=== PATIENT | male | born 1955 | race Caucasian/White ===

== ENCOUNTER 2024-03-31 10:30 | Outpatient (CLI) | payer MEDICARE, BC, SELFPAY ==
--- OUTSIDE RECORDS SUMMARY | 2024-04-02 07:32 | XMS_ITS | Clinical Summary ---
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 2 Each 2 10/26/2013 Active aspirin enteric coated 81 mg tablet Take 1 tablet by mouth once daily with a meal. 0 03/25/2014 Active blood sugar diagnostic (CONTOUR NEXT STRIPS) stripIndications:Typ e 2 diabetes mellitus without complication, unspecified custodial insulin use status TEST FOUR TO 6 TIMES PER DAY 550 Each 3 01/30/2017 Active PARoxetine (PAXIL) 30 mg tabletIndications:Ma crystal depressive disorder, single episode, moderate (HC) Take 1 tablet by mouth once daily. 90 tablet 3 03/16/2018 Active omeprazole (PRILOSEC) 20 mg Delayed-Release capsuleIndications:G astroesophageal reflux disease without esophagitis TAKE ONE CAPSULE BY MOUTH DAILY 90 capsule 3 03/16/2018 Active NOVOLOG U-100 INSULIN ASPART 100 unit/mL injectionIndications :Type 2 diabetes mellitus without complication, with long-term current use of insulin (HC) USES 90 UNITS DAILY VIA INSULIN PUMP 90 mL 12/08/2018 Active acetaminophen (TYLENOL) 325 mg tabletIndications:S/ P CABG x 4 Take 1-2 tablets by mouth every 6 hours if needed. Max acetaminophen dose: 4000mg in 24 hrs. 0 08/23/2020 Active atorvastatin (LIPITOR) 40 mg tabletIndications:S/ P CABG x 4,Hyperlipidemia, unspecified hyperlipidemia type Take 1 tablet by mouth at bedtime. 30 tablet 2 08/23/2020 Active clopidogreL (PLAVIX) 75 mg tabletIndications:S/ P CABG x 4 Take 1 tablet by mouth every morning. Take for 3 months following surgery 30 tablet 2 08/24/2020 Active metoprolol tartrate (LOPRESSOR) 25 mg tabletIndications:S/ P CABG x 4,Essential hypertension Take 1 tablet by mouth 2 times daily. 60 tablet 2 08/23/2020 Active lisinopriL (PRINIVIL; ZESTRIL) 10 mg tabletIndications:S/ P CABG x 4,Essential hypertension Take 1 tablet by mouth once daily. 30 tablet 11 09/27/2020 Active Active Problems Problem Noted Date Diagnosed Date Essential hypertension 09/01/2018 Type 2 diabetes mellitus wit hout complication, with long-term current use of insulin 02/04/2017 GERD (gastroesophageal reflux disease) 3 Retinopathy, diabetic, bilateral 09/27/2013 Major depression, single episode 09/27/2013 Hyperlipidemia 09/21/2013 Cardiovascular symptoms Coronary artery disease Resolved Problems Problem Noted Date Diagnosed Date Resolved Date Type 2 diabetes mellitus without complication 03/13/20 16 02/04/2017 Diabetes mellitus 04/30/2015 04/30/2015 Diabetes mellitus 04/30/2015 04/30/2015 Hypertension 10/05/2014 09/01/2018 Type 2 diabetes mellitus 11/04/2001 Immunizations Name Administration Dates Next Due Influenza, IIV3 (Age >=3 years) 08/04/2013 Influenza, IIV4 08/23/2020(), 020,09/01/2018, 7,07/18/2016,08/25/2015,08/04/2014 Zoster (Zostavax-ZVL, live) 10/31/2013 Family History Medical History Relation Name Comments Cancer Father skin cancer Other Father pacemaker Arthritis Mother Hyperlipidemia Mother Valvular heart disease Mother histo ry of valve replacement Diabetes Paternal Aunt 1 Diabetes Paternal Aunt 2 Relation Name Status Comments Father Mother Paternal Aunt 1 Paternal Aunt 2 Social History Tobacco Use Types Packs/Day Years Used Date Smoking Tobacco: Former Cigarettes 1 25 0 11/04/1974 - 11/04/1999 Smokeless Tobacco: Never Tobacco Cessation:Counseling Given: Yes Alcohol Use Standard Drinks/Week Comments Yes 0 (1 standard drink = 0.6 oz pur e alcohol) holidays PHQ-2 Answer Date Recorded PHQ-2 TOTAL SCORE 0 01/16/2021 Social Connections Answer Date Recorded Frequency of Communication with Friends and Fami ly Not on file 11/04/2021 Financial Resource Strain Answer Date R ecorded Difficulty of Paying Living Expenses Not on file 11/04/2021 Difficulty of Paying Living Expenses Not on file 11/04/2021 Sex and Gender Information Value Date Recorded Sex Assigned at Not on file Gender Identity Not on file Sexual Orientation Not on file Obstetrics History Last Filed Vital Signs Vital Sign Reading Time Taken Comments Blood Pressure 173/82 09/27/2020 1:26 PM 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 Pulse 57 09/27/2020 1:26 PM CROWN 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 Temperature 36.6 ??C (97.9 ??F) 09/27/2020 1:26 PM CS T Respiratory Rate 16 08/23/2020 8:05 AM CDT Oxygen Saturation 98% 09/27/2020 1:26 PM CROWN 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 Inhaled Oxygen Concentration - - Weight 80.3 kg (177 lb) 10/19/2020 2:00 PM CROWN 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 Height 162.6 cm (5' 4) 10/19/2020 2:00 PM CROWN 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 Body Mass Index 30.38 10/19/2020 2:00 PM CROWN 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 Plan of Treatment Health Maintenance Due Date Last Done Comments Hepatitis C screening for ag e 18-79 1973 Tetanus booster 1975 Zoster (shingles) series for age 50+ (2 of 3) 12/26/2013 10/31/2013 Pneumococcal series for age 65+ (1 of 1 - PCV) 2020 BMI (ht and wt on same day) for age 18+ 08/11/2021 08/11/2020, 09/01/2018, 03/10/2018, Additional history exists Depression screening for age 12+ 01/16/2022 01/16/2021, 10/21/2020, 10/19/2020, Additional history exists Colonoscopy through age 75 01/01/202301/01 (Completed outside of [facility]) Lipids for age 45-75 03/10/2023 03/10/2018, 02/04/2017, 08/25/2015, Additional history exists COVID-19 vaccine series (2022- season) 2023 Influenza for age 65+ 07/05/2024 08/23/2020 , 09/01/2018, 09/24/2017, Additional history exists Tdap Completed 11/04/2007 (Comp leted outside of [facility]) Procedures Procedure Name Priority Date/Time Associated Diagnosis Comments LIPID PANEL W REFLEX MEASURED LDL Routine 03/10/2018 9:59 AM CDT Hyperlipidemia, unspecified hyperlipidemia type from Last 3 Months or Most Recently Relevant to Health Maintenance Results * LIPID PANEL W REFLEX MEASURED LDL (03/10/2018 9:59 AM CDT) CHOLESTEROL,TOTAL 180 100 - 199 mg/dL 03/10/2018 10:45 AM CDT [facility] TRIGLYCERIDES 91 <150 mg/dL 03/10/2018 10:45 AM CDT [facility] HDL CHOLESTEROL 42 >40 mg/dL 8 10:45 AM CDT [facility] NON-HDL CHOLESTEROL 138 <145 mg/dl 03/10/2018 10:45 AM CDT [facility] CHOL/HDL RATIO 4.29 <4.50 03/10/2018 10:45 AM CDT [facility] LDL CHOLESTEROL 120 <=130 mg/dL 03/10/2018 10:45 AM CDT [facility] PROVIDER ORDERED STATUS RANDOM 03/10/2018 10:45 AM CDT [facility] Blood BLOOD SPECIMEN / Unknown Venipuncture / Unknown 03/10/2018 9:59 AM CDT 03/10/2018 9:59 AM CDT Tez Coyle MD CHEMISTRY [facility] [address] [place] [address] from Last 3 Months or Most Recently Relevant to Health Maintenance Advance Directives * Full Code (Latest Code Status on File) Date Activated Date Inactivated Comments 08/18/2020 9:01 AM 08/23/2020 3:41 PM Question Answer Comments Code Status Discussion: Discussed Care Teams Generator Operator Straight Bevel Gear Relationship Specialty Start Date End Date Tez Coyle MD PCP - General Family Practice 09/16/13
== END 2024-03-31 10:31 | disposition home or self-care (01) ==
LOC: NFLDREF 04-02 07:31
PROVIDERS: PCP Family Medicine; Referring Provider Family Medicine; Visit Provider Family Medicine
DX: E11.9 Type 2 diabetes mellitus without complications (principal); I10 Essential (primary) hypertension; E78.5 Hyperlipidemia, unspecified; F32.9 Major depressive disorder, single episode, unspecified; K21.9 Gastro-esophageal reflux disease without esophagitis; L21.9 Seborrheic dermatitis, unspecified; H91.90 Unspecified hearing loss, unspecified ear; E78.2 Mixed hyperlipidemia; Z79.4 Long term (current) use of insulin; Z86.010 Personal history of colon polyps
CPT/HCPCS: 80048; 80061; 83690; G0103

== ENCOUNTER 2024-09-20 13:27 | Emergency (ER) | payer MEDICARE, BC, SELFPAY ==
[2024-09-20 13:32] VITALS: BP 181/83; PULSE 60; RESP 18; TEMP 36.4; O2SAT 96; BMI 30.8
--- NOTE | 2024-09-20 14:00 | ED_ITS ---
HPI - General Adult General Date Seen: 09/20/24 Chief complaint: Abdominal Pain Stated complaint: stomach discomfort/pain Time Seen by Provider: 09/20/24 13:59 History of Present Illness HPI narrative: 68 yo M with a history of hyperlipidemia, type 2 diabetes, coronary artery disease (CABG in 2019), hypertension, GERD, depression, colon polyps presenting to the ER today for abdominal discomfort. For the past few days, perhaps since for 5 days ago he has had a generalized ache in his abdomen. It has been coming and going. No clear pattern to what exacerbates or alleviates the pain. Sometimes it is worth with activity or movement. Sometimes it is not. No clear relationship to eating or food. Sometimes mild nausea but no vomiting. Bowel movements have been normal. Urination normal. No fever. Patient recalls that had some problem with his GI tract several years ago but cannot recall what that was. I attempted to look in the medical record but there is no available records in [facility]. I also checked the link to the [facility] EMR however this is malfunction now I am not able to see old records today (hospital Administration notified to correct the problem). Therefore were not sure what his previous problem was. It does not sound like it was diverticulitis or bowel obstruction. He has not had appendectomy. Subsequently his arrived and she was able to recall that he had been hospitalized several years ago for duodenitis. She does not recall that he had any upper GI bleeding or perforation with that. Related Data Home Medications ?Medication ?Instructions ?Recorded ?Confirmed aspirin 81 mg tablet,delayed 81 mg PO QDAY 05/14/22 07/07/24 release (Adult Aspirin Regimen) Previous Rx's ?Medication ?Instructions ?Recorded blood sugar diagnostic (Contour #400 ea 08/29/22 Next Test Strips) flash glucose scanning reader #1 ea 05/20/23 (FreeStyle Ana 2 [place]) flash glucose sensor (FreeStyle #6 ea 05/20/23 Ana 2 Sensor kit) atorvastatin 40 mg tablet 40 mg PO QDAY #90 tabs 03/31/24 fluocinonide 0.05 % topical 1 applic topical BID #60 mL 03/31/24 solution lisinopril 20 mg tablet 20 mg PO BID #180 tabs 03/31/24 metoprolol tartrate 25 mg tablet 25 mg PO BID #180 tabs 03/31/24 paroxetine HCl 30 mg tablet 30 mg PO QDAY #90 tabs 03/31/24 omeprazole 20 mg capsule,delayed 20 mg PO QDAY #90 caps 04/01/24 release insulin aspart (niacinamide) 100 unit subcut DAILY #90 mL 08/31/24 (U-100) 100 unit/mL subcutaneous solution (Fiasp U-100 Insulin) Allergies Allergy/AdvReac Type Severity Reaction Status Date / Time bee venom protein (honey bee) Allergy Severe Anaphylaxis Verified 09/20/24 15:44 [facility] Medical History (Updated 09/20/24 @ 17:03 by John Lockwood MD) Mixed hyperlipidemia ?E78.2 - Mixed hyperlipidemia (ICD-10) Type 2 diabetes mellitus, with long-term current use of insulin ?E11.9 - Type 2 diabetes mellitus without complications (ICD-10) ?Z79.4 - half-way (current) use of insulin (ICD-10) Allergic rhinitis ?J30.9 - Allergic rhinitis, unspecified (ICD-10) Tinea cruris ?B35.6 - Tinea cruris (ICD-10) Major depressive disorder with single episode (09/27/13) ?F32.9 - Major depressive disorder, single episode, unspecified (ICD-10) History of fracture of ankle (07/02/06) ?Z87.81 - Personal history of (healed) traumatic fracture (ICD-10) Gastroesophageal reflux disease ?K21.9 - Gastro-esophageal reflux disease without esophagitis (ICD-10) Essential hypertension ?I10 - Essential (primary) hypertension (ICD-10) Duodenitis (12/17/17) ?K29.80 - Duodenitis without bleeding (ICD-10) Diabetic retinopathy of both eyes ?E11.319 - Type 2 diabetes mellitus with unspecified diabetic retinopathy without macular edema (ICD-10) Arteriosclerotic cardiovascular disease (08/2020) ?I25.10 - Atherosclerotic heart disease of [place] coronary artery without angina pectoris (ICD-10) Surgical History (Updated 05/02/22 @ 14:15 by Anirudh Carbone) Status post cataract extraction and insertion of intraocular lens (03/16/15) ?Z98.49 - Cataract extraction status, unspecified eye (ICD-10) ?Z96.1 - Presence of intraocular lens (ICD-10) History of inguinal hernia repair ?Z98.890 - Other specified postprocedural states (ICD-10) ?Z87.19 - Personal history of other diseases of the digestive system (ICD-10) History of hand surgery (09/27/15) ?Z98.890 - Other specified postprocedural states (ICD-10) History of esophagogastroduodenoscopy (EGD) (01/01/18) ?Z98.890 - Other specified postprocedural states (ICD-10) History of colonoscopy (01/01/18) ?Z98.890 - Other specified postprocedural states (ICD-10) Social History (Updated 03/31/24 @ 11:32 by Crystal Greer ~ [facility]) Narrative: , 2 kids, retired, non-smoker, rare EtOH What is your current living situation?: I presently have a place to live Problems where you live: no known problems In the past 12 months, utilities in danger of being shut off: no In the past 12 mos, have been you worried that your food would run out before you had money to buy more?: never true In the past 12 mos, the food you bought just didn't last and you didn't have money to buy more?: never true Smoking Status: Former smoker Do you use any of these nicotine containing products: None How often do you have a drink containing alcohol: monthly or less AUDIT-C Alcohol total score: 1 Non-prescribed substance use: denies use How often does anyone, including family, friends and others, physically hurt you : never How often does anyone, including family, friends and others, insult or talk down to you: never How often does anyone, including family, friends and others, threaten you with harm: never How often does anyone, including family, friends and others, scream or curse at you: never service: No Exam Narrative: Exam Narrative: Constitutional: Appears well-developed and well-nourished. Alert. Conversant. Non toxic. HENT: Head: Atraumatic. Nose: Nose normal. Mouth/Throat: Oral mucosa is clear and moist. no trismus. Eyes: Conjunctivae normal. EOM normal. Pupils equal, round, and reactive to light. No scleral icterus. Neck: Normal range of motion. Neck supple. No tracheal deviation present. Cardiovascular: Normal rate, regular rhythm. No gallop. No friction rub. No murmur heard. Symmetric radial artery pulses Pulmonary/Chest: Effort normal. No stridor. No respiratory distress. No wheezes. No rales. No rhonchi . No tenderness. Abdominal: Soft. Bowel sounds normal. Protuberant due to his body habitus but no distension. No mass. Mild epigastric and bilateral upper quadrant tenderness> suprapubic tenderness. No left lower quadrant or right lower quadrant tenderness. He has an insulin pump in his right lower quadrant. The site looks good. No rebound. No guarding. Musculoskeletal: RUE: Normal range of motion. No tenderness. No deformity LUE: Normal range of motion. No tenderness. No deformity RLE: Normal range of motion. No edema. No tenderness. No deformity LLE: Normal range of motion. No edema. No tenderness. No deformity Lymph: No cervical adenopathy. Neurological: Alert and oriented to person, place, and time. Normal strength. CN II-VII intact. No sensory deficit. GCS eye subscore is 4. GCS verbal subscore is 5. GCS motor subscore is 6. Normal coordination Skin: Skin is warm and dry. No rash noted. No pallor. Normal capillary refill. Psychiatric: Normal mood. Normal affect. Const: Vital Signs, click to edit/add: Vital Signs - 24 hr 09/20/24 13:32 Temperature 97.6 F Pulse Rate [Pulse Oximeter] 60 Respiratory Rate 18 Blood Pressure [Ri ght Upper Arm] 181/83 H Pulse Oximetry 96 Oxygen Delivery Me thod Room Air Course Course ED Course: Recheck-pleasant. Polite and conversant. No significant pain. Vital Signs Vital signs: Initial Vital Signs Temperature 97.6 F 09/20/24 13:32 Temperature Source Temporal Artery Scan 09/20/24 13:32 Pulse Rate 60 09/20/24 13:32 Respiratory Rate 18 09/20/24 13:32 Blood Pressure 181/83 H 09/20/24 13:32 Blood Pressure Mean 115 H 09/20/24 13:32 Blood Pressure Position Sitting 09/20/24 13:32 Pulse Oximetry 96 09/20/24 13:32 Oxygen Delivery Method Room Air 09/20/24 13:32 Vital Signs Temperature 97.6 F 09/20/24 13:32 Pulse Rate 60 09/20/24 13:32 Respiratory Rate 18 09/20/24 13:32 Blood Pressure 181/83 H 09/20/24 13:32 Pulse Oximetry 96 09/20/24 13:32 Oxygen Delivery Method Room Air 09/20/24 13:32 Temperature 97.6 F 09/20/24 13:32 Pulse Rate 60 09/20/24 13:32 Respiratory Rate 18 09/20/24 13:32 Blood Pressure 181/83 H 09/20/24 13:32 Pulse Oximetry 96 09/20/24 13:32 Oxygen Delivery Method Room Air 09/20/24 13:32 Medical Decision Making [facility] Narrative Medical decision making narrative: Very pleasant 68-year-old gentleman presenting to the ER today with generalized abdominal pain this been coming home going for the past few days, getting worse over time. Pain is predominantly upper more so than lower. The differential diagnosis of abdominal pain includes: Appendicitis, Bowel Obstruction, Ulcer, Ischemia, Cholecystitis, Diverticulitis, Pancreatitis, UTI, kidney stone, Enteritis/Colitis, amongst many other etiologies. Laboratory workup shows mildly elevated lipase suggestive for possible pancreatitis but is not 3 times the upper limit of normal. CT scan also shows possible inflammation in the area of the pancreas or possible duodenitis. White count is 12.3. Hemoglobin normal at 14.4. He has not had any diarrhea, black or bloody stools to suggest upper GI bleed. LFTs are normal. Gallbladder is present on CT without any evidence for gallstones or cholecystitis based on CT imaging. Alk-phos mildly elevated at 178 but other LFTs normal. His is able to recall that his previous hospitalization was for duodenitis. Certainly with the CT findings this could be a case of duodenitis again. No evidence for perforation, upper GI bleed. He is hemodynamically stable. He is already on omeprazole 20 mg daily. He really takes NSAIDs but does take baby aspirin. It is possible that duodenitis could be causing some reactive inflammation of the pancreas leading to his mildly abnormal lipase. Patient does have diabetes. He reports somewhat labile I blood sugars as his baseline. Glucose is 211 today. Anion gap is normal at 8 and bicarb is 28. No evidence for DKA or nonketotic hyperosmolar syndrome. He is hemodynamically stable and not febrile. In fact is hypertensive. Overall he is feeling pretty good here in the ER. I had a detailed discussion with the patient and his about the diagnoses in question in the potential treatment. We discussed hospitalization but he wants to go home. Overall he is well appearing. He is not wanting any pain medications here in the ER. At this point I do not think it is reasonable to make him sign out AMA. Will have him stick to a clear liquid, low-fat diet for the next couple of days. This will help improve if this is pancreatitis. He will recheck with his doctor or failing that, come back to the ER for repeat labs by Saturday. We also discussed that with potential duodenitis will to avoid NSAIDs already. Return to the ER right away if worsening or uncontrolled pain, high fever, vomiting, bloody or black stools, or any concern. Lab Data Labs: Lab Results 09/20/24 09/20/24 Range/Units 14:25 15:18 WBC 12.23 H (4.50-11.00) K/uL RBC 5.32 (4.30-5.90) m/uL Hgb 14.4 (13.5-17.5) gm/dL Hct 43.8 (37.0-53.0) % MCV 82 (80-100) fL MCH 27 (26-34) pg MCHC 33 (32-36) gm/dL RDW Coeff of Reinaldo 13.9 (11.5-15.5) % Plt Count 310 (140-440) K/uL Neut % (Auto) 74.7 H (42.0-72.0) % Lymph % (Auto) 15.4 L (20-44) % [place] % (Auto) 6.0 (0.0-11.0) % Eos % (Auto) 2.9 (0.0-7.0) % Baso % (Auto) 0.2 (0.0-3.0) % Neut # (Auto) 9.10 H (1.7-7.0) K/uL Lymph # (Auto) 1.90 (0.90-2.90) K/uL [place] # (Auto) 0.70 (0.00-0.90) K/UL Eos # (Auto) 0.40 (0.00-0.50) K/uL Baso # (Auto) 0.00 (0.00-0.30) K/uL Abs Immat Gran (auto) 0.10 (0.00-0.30) K/uL Imm/Tot Granulo (auto) 0.8 % Sodium 135 (135-149) mmol/L Potassium 4.0 (3.6-5.1) mmol/L Chloride 99 (96-114) mmol/L Carbon Dioxide 28 (20-32) mmol/L Anion Gap 8 (7-15) mEq/L BUN 15 (7-30) mg/dL Creatinine 0.9 (0.5-1.5) mg/dL Estimated Creat Clear 61.50 Estimated GFR 93 ml/min Glucose 211 H (60-115) mg/dL Lactate 1.4 (0.5-1.9) mmol/L Calcium 8.7 (8.4-10.6) mg/dL Total Bilirubin 0.5 (0.1-1.5) mg/dL AST 21 (12-35) U/L ALT 14 (4-50) U/L Alkaline Phosphatase 178 H (40-150) U/L Total Protein 7.6 (6.0-8.3) g/dL Albumin 4.4 (3.3-5.0) g/dL Lipase 538 H (23-300) U/L Urine Color Yellow (Yellow) Urine Appearance Clear (Clear) Urine pH 6.0 (5.0-8.5) Ur Specific [place] 1.020 (1.000-1.030) Urine Protein 1+ A (Negative) Urine Glucose (UA) 3+ A (Negative) Urine Ketones Negative (Negative) Urine Blood Negative (Negative) Urine Nitrite Negative (Negative) Urine Bilirubin Negative (Negative) Urine Urobilinogen 0.2 (0.2-1.0) Ur Leukocyte Esterase Negative (Negative) Urine RBC 0-2 (0-2) Urine WBC 0-2 (0-5) Ur Squamous Epith Cells None (None-Few) Urine Bacteria None (None) Imaging Data CT scan - abdomen: Attestation: I have reviewed the pertinent imaging results. Radiologist's impression: IMPRESSION: Inflammation ventral from the 3rd segment of the duodenum may be from ulcer disease or adjacent mild pancreatitis in the uncinate process. Correlate with laboratory findings. Steatosis of the liver. Small sliding hiatus hernia. Prominent prostatomegaly. Prior right inguinal hernia repair. Shallow fat filled left inguinal hernia. Discharge Plan Discharge Clinical Impression: Pancreatitis, Duodenitis Patient Disposition: Home, Self-Care Instructions: Pancreatitis (ED), Diet for Stomach Ulcers and Gastritis (ED), Acute Nausea and Vomiting (ED), Duodenitis (ED) Additional Instructions: As we discussed, please come back to the ER right away if you have worsening pain, fever, vomiting, bloody or black stools, or any concerns. Even if you are getting better, please recheck with your doctor (or come back to the ER or urgent care) by Saturday for re-evaluation and repeat lab check. At this point the cause for your pain is not clear. This could be either inflam mation of your pancreas (pancreatitis) or inflammation of you 1st part of her small intestine) duodenitis). To treat these conditions, for the next couple of days stick to a clear liquid and low-fat diet. Avoid spicy foods or greasy foods. Avoid nonsteroidal anti-inflammatories. Increased your dose of omeprazole from 20 mg daily up to 40 mg daily. If necessary you can use the prescription for Hilger as needed for pain. Use caution with Hilger because it can cause dizziness, drowsiness, constipation, and can be addictive. Prescriptions: No Action aspirin [Adult Aspirin Regimen] 81 mg tablet,delayed release (DR/EC) 81 mg PO QDAY (DME) FreeStyle Ana 2 [place] Misc See Rx Instructions .Route Qty: 1 0RF Rx Instructions: As directed (DME) FreeStyle Ana 2 Sensor Kit See Rx Instructions .Route Qty: 6 3RF Rx Instructions: Change every 2 weeks paroxetine HCl 30 mg tablet 30 mg PO QDAY Qty: 90 3RF metoprolol tartrate 25 mg tablet 25 mg PO BID Qty: 180 3RF lisinopril 20 mg tablet 20 mg PO BID Qty: 180 3RF atorvastatin 40 mg tablet 40 mg PO QDAY Qty: 90 3RF fluocinonide 0.05 % solution 1 applic topical BID Qty: 60 2RF (DME) Contour Next Test Strips Strip See Rx Instructions .ROUTE .MEDSUPPLY Qty: 400 3RF Rx Instructions: Tests 5 times daily omeprazole 20 mg capsule,delayed release(DR/EC) 20 mg PO QDAY Qty: 90 3RF Fiasp U-100 Insulin 100 unit/mL solution 100 unit subcut DAILY Qty: 90 3RF Rx Instructions: 100 units daily per insulin pump Follow Up/Referrals: Tez Coyle MD [Primary Care Provider] - Stand Alone Forms: Invoke [employer] Info Instructions
--- NOTE | 2024-09-20 14:14 | CRLHL7_ITS ---
For Patients: As a result of the Century Cures Act, medical imaging exams and procedure reports are released immediately into your electronic medical record. You may view this report before your referring provider. If you have questions, please contact your health care provider. INDICATION: Abdominal pain and bloating. History of inguinal hernia repairs. TECHNIQUE: CT abdomen and pelvis acquired with 101 mL Isovue 370 IV contrast. COMPARISON: 17 December 2017 FINDINGS: Lower chest: Sternotomy. Small sliding hiatus hernia. Liver: Mild low attenuation steatosis diffusely. Spleen: Unremarkable. Pancreas: Some inflammatory stranding extending inferior from the uncinate process ventral from the duodenal 3rd and 4th segment (image 68 series 2). No extraluminal air. No organized fluid. Pancreas enhances normally. Gallbladder and bile ducts: Contracted but unremarkable. Kidneys: Unremarkable. Adrenal glands: Unremarkable. GI tract: No duodenal wall thickening. Remaining large and small bowel is unremarkable. Appendix is normal. Vascular structures: Moderate diffuse atherosclerotic vascular calcifications. Lymph nodes: Unremarkable. Miscellaneous: Unremarkable. No free air or significant free fluid. Pelvic Organs: Prostatomegaly. Changes suggesting a right inguinal hernia repair. Shallow fat filled left inguinal hernia. Bones: Unremarkable for age. IMPRESSION: Inflammation ventral from the 3rd segment of the duodenum may be from ulcer disease or adjacent mild pancreatitis in the uncinate process. Correlate with laboratory findings. Steatosis of the liver. Small sliding hiatus hernia. Prominent prostatomegaly. Prior right inguinal hernia repair. Shallow fat filled left inguinal hernia. Please note that all CT scans at this facility use dose modulation, iterative reconstruction, and/or weight-based dosing when appropriate to reduce radiation dose to as low as reasonably achievable. Dictated by Mihir Miramontes MD @ 09/20/2024 4:27:34 PM (Electronically Signed)
[2024-09-20 14:37] LABS: Appearance Urine Clear (Clear); Bilirubin Urine Negative (Negative); Blood Urine Negative (Negative); Color Urine Yellow (Yellow); Glucose Urine 3+ (Negative); Ketones Urine Negative (Negative); Leukocyte Esterase Urine Negative (Negative); Nitrite Urine Negative (Negative); Protein Urine 1+ (Negative); Urobilinogen Urine 0.2 (0.2-1.0)
[2024-09-20 14:50] LABS: RBC Urine 0-2 (0-2); WBC Urine 0-2 (0-5)
[2024-09-20 15:30] LABS: Lactate* 1.4 mmol/L (0.5-1.9)
[2024-09-20 15:34] LABS: Basophils Percent Auto 0.2 % (0.0-3.0); Eosinophils Percent Auto 2.9 % (0.0-7.0); Hematocrit 43.8 % (37.0-53.0); Hemoglobin* 14.4 gm/dL (13.5-17.5); Immature Granulocytes Pct Auto 0.8 %; Lymphocytes Percent Auto 15.4 % (20-44); Mean Corpuscular HGB Conc 33 gm/dL (32-36); Mean Corpuscular Hemoglobin 27 pg (26-34); Mean Corpuscular Volume 82 fL (80-100); Neutrophils Percent Auto 74.7 % (42.0-72.0); Platelet Count* 310 K/uL (140-440); RDW Coefficient of Variation % 13.9 % (11.5-15.5); Red Blood Count 5.32 m/uL (4.30-5.90); White Blood Count* 12.23 K/uL (4.50-11.00)
[2024-09-20 15:35] LABS: Slide Review Reflex No
[2024-09-20 15:46] LABS: Albumin* 4.4 g/dL (3.3-5.0); Chloride* 99 mmol/L (96-114); Sodium* 135 mmol/L (135-149)
[2024-09-20 15:49] LABS: Alanine Aminotransferase* 14 U/L (4-50); Alkaline Phosphatase* 178 U/L (40-150); Anion Gap 8 mEq/L (7-15); Aspartate Amino Transferase* 21 U/L (12-35); Bilirubin Total* 0.5 mg/dL (0.1-1.5); Blood Urea Nitrogen* 15 mg/dL (7-30); Carbon Dioxide* 28 mmol/L (20-32); Creatinine* 0.9 mg/dL (0.5-1.5); Estimated Glomerular Filt Rate 93 ml/min; Glucose* 211 mg/dL (60-115); Lipase* 538 U/L (23-300); Total Protein* 7.6 g/dL (6.0-8.3)
[2024-09-20 15:50] LABS: Calcium* 8.7 mg/dL (8.4-10.6)
== END 2024-09-20 17:10 | disposition home or self-care (01) ==
PROVIDERS: Emergency Provider Emergency Medicine; PCP Family Medicine
DX: K85.90 Acute pancreatitis without necrosis or infection, unspecified (principal); K29.80 Duodenitis without bleeding
CPT/HCPCS: 36415; 74177; 80053; 81001; 83605; 83690; 85025; 99283; 99284; Q9967

== ENCOUNTER 2024-09-22 11:25 | Outpatient (CLI) | payer MEDICARE, BC, SELFPAY ==
--- OUTSIDE RECORDS SUMMARY | 2024-09-22 11:29 | XMS_ITS | Clinical Summary ---
Author Organization [facility] Address [place], [place] [address] Care Team Providers Care Gm Name Role Phone Tez Coyle MD Primary [...] e 2 diabetes mellitus without complication, unspecified long-term insulin use status TEST FOUR TO 6 [...] Comments Blood Pressure 173/82 09/27/2020 1:26 PM EXPLORATION DRILLER Pulse 57 09/27/2020 1:26 PM EXPLORATION DRILLER Temperature 36.6 C (97.9 F) 09/27/2020 1:26 PM EXPLORATION DRILLER Respiratory Rate 16 08/23/2020 8:05 AM CDT Oxygen Saturation 98% 09/27/2020 1:26 PM EXPLORATION DRILLER Inhaled Oxygen Concentration - - Weight 80.3 kg (177 lb) 10/19/2020 2:00 PM EXPLORATION DRILLER Height 162.6 cm (5' 4) 10/19/2020 2:00 PM EXPLORATION DRILLER Body Mass Index 30.38 10/19/2020 2:00 PM EXPLORATION DRILLER Plan of Treatment Health Maintenance Due Date Last Done Comments Hepatitis C screening for ag e 18-79 1973 Tetanus booster 1975 Zoster (shingles) series for age 50+ (2 of 3) 12/26/2013 10/31/2013 Medicare Wellness for age 65+ 2020 Pneumococcal series for age 65+ (1 of 1 - PCV) 2020 BMI (ht and wt on same day) for age 18+ 08/11/2021 08/11/2020, 09/01/2018, 03/10/2018, Additional history exists Depression screening for age 12+ 01/16/2022 01/16/2021, 10/21/2020, 10/19/2020, Additional history exists Colonoscopy through age 75 01/01/202301/01 (Completed outside of [facility]) Lipids for age 45-75 03/10/2023 03/10/2018, 02/04/2017, 08/25/2015, Additional history exists COVID-19 vaccine series ( season) 2024 10/03/2021, 02/02/2021, 01/05/2021 Influenza for age 65+ 07/05/2024 08/23/2020 , 09/01/2018, 09/24/2017, Additional history exists Tdap Completed 11/04/2007 (Comp leted outside of [facility]) Procedures Procedure Name Priority Date/Time Associated Diagnosis Comments LIPID PANEL W REFLEX MEASURED LDL Routine 03/10/2018 9:59 AM CDT Hyperlipidemia, unspecified hyperlipidemia type from Last 3 Months or Most Recently Relevant to Health Maintenance Results * LIPID PANEL W REFLEX MEASURED LDL (03/10/2018 9:59 AM CDT) CHOLESTEROL,TOTAL 180 100 - 199 mg/dL 03/10/2018 10:45 AM CDT [facility] TRIGLYCERIDES 91 <150 mg/dL 03/10/2018 10:45 AM CDT [facility] HDL CHOLESTEROL 42 >40 mg/dL 8 10:45 AM CDT [facility] NON-HDL CHOLESTEROL 138 <145 mg/dl 03/10/2018 10:45 AM CDT [facility] CHOL/HDL RATIO 4.29 <4.50 03/10/2018 10:45 AM CDT [facility] LDL CHOLESTEROL 120 <=130 mg/dL 03/10/2018 10:45 AM CDT [facility] PROVIDER ORDERED STATUS RANDOM 03/10/2018 10:45 AM CDT [facility] Blood BLOOD SPECIMEN / Unknown Venipuncture / Unknown 03/10/2018 9:59 AM CDT 03/10/2018 9:59 AM CDT Tez Coyle MD CHEMISTRY [address] [id number] from Last 3 Months or Most Recently Relevant to Health Maintenance Advance Directives * Full Code (Latest Code Status on File) Date Activated Date Inactivated Comments 08/18/2020 9:01 AM 08/23/2020 3:41 PM Question Answer Comments Code Status Discussion: Discussed Care Teams Gm Relationship Specialty Start Date End Date Tez Coyle MD PCP - General Family Practice 09/16/13
== END 2024-09-22 11:26 | disposition home or self-care (01) ==
PROVIDERS: PCP Family Medicine; Visit Provider Family Medicine
DX: K29.80 Duodenitis without bleeding (principal); K85.90 Acute pancreatitis without necrosis or infection, unspecified
CPT/HCPCS: 80053; 83690

== ENCOUNTER 2024-10-19 11:45 | Outpatient (CLI) | payer MEDICARE, BC, SELFPAY | END 2024-10-19 11:46 | disposition home or self-care (01) | LOC: NFLDREF 10-21 03:48 | PROVIDERS: PCP Family Medicine; Referring Provider Family Medicine; Visit Provider Family Medicine | DX: E11.9 Type 2 diabetes mellitus without complications (principal); Z79.4 Long term (current) use of insulin | CPT/HCPCS: 82947; 84681 ==

== ENCOUNTER 2025-01-25 07:12 | Outpatient (CLI) | payer MEDICARE, BC, SELFPAY ==
--- NOTE | 2025-01-25 08:33 | P.ANES_ITS ---
Anesthesia Charges Start Date/Time Anesthesia Start Date: 01/25/25 Anesthesia Start Time: 08:10 Stop Date/Time Anesthesia Stop Date: 01/25/25 Anesthesia Stop Time: 08:30 Coding CPT Codes CPT Codes: ANES LWR INTST SCR COLSC - 81612 ([id number]) P3 - PATIENT W/SEVERE SYS DISEASE, QK - DOCUMENT CONTROL CLERK 2-4 CNCRNT ANES PROC, QX - WAIST CUTTER SVC W/ MD MED DIRECTION
--- NOTE | 2025-01-25 08:33 | W.ANESCHARGE ---
Anesthesia Charges Start Date/Time Anesthesia Start Date: 01/25/25 Anesthesia Start Time: 08:10 Stop Date/Time Anesthesia Stop Date: 01/25/25 Anesthesia Stop Time: 08:30 Coding CPT Codes CPT Codes: ANES LWR INTST SCR COLSC - 24191 ([id number]) P3 - PATIENT W/SEVERE SYS DISEASE, QK - DIRECTOR OF SAFETY AND SECURITY 2-4 CNCRNT ANES PROC, QX - COOKIE BREAKER SVC W/ MD MED DIRECTION
--- NOTE | 2025-01-25 09:13 | P.ANES_ITS ---
Anesthesia Charges Start Date/Time Anesthesia Start Date: 01/25/25 Anesthesia Start Time: 08:10 Stop Date/Time Anesthesia Stop Date: 01/25/25 Anesthesia Stop Time: 08:30 Coding CPT Codes CPT Codes: ANES LWR INTST SCR COLSC - 41647 ([id number]) QK - INVESTOR RELATIONS MANAGER 2-4 CNCRNT ANES PROC, QX - EMERGENCY CARE ATTENDANT SVC W/ MED DIRECTION, P3 - PATIENT W/SEVERE SYS DISEASE
--- NOTE | 2025-01-25 09:13 | W.ANESCHARGE ---
Anesthesia Charges Start Date/Time Anesthesia Start Date: 01/25/25 Anesthesia Start Time: 08:10 Stop Date/Time Anesthesia Stop Date: 01/25/25 Anesthesia Stop Time: 08:30 Coding CPT Codes CPT Codes: ANES LWR INTST SCR COLSC - 87392 ([id number]) QK - ALL SOURCE INTELLIGENCE 2-4 CNCRNT ANES PROC, QX - RIVER PILOT SVC W/ MED DIRECTION, P3 - PATIENT W/SEVERE SYS DISEASE
== END 2025-01-25 07:13 | disposition home or self-care (01) ==
LOC: OP CLINIC 07:12
PROVIDERS: PCP Family Medicine; Visit Provider Surgery
DX: Z12.11 Encounter for screening for malignant neoplasm of colon (principal); Z86.0100 Personal history of colon polyps, unspecified
CPT/HCPCS: 00812; 45378; J2704

== ENCOUNTER 2025-04-06 11:13 | Outpatient (CLI) | payer MEDICARE, BC, SELFPAY | END 2025-04-06 11:14 | disposition home or self-care (01) | PROVIDERS: PCP Family Medicine; Visit Provider Family Medicine | DX: Z12.5 Encounter for screening for malignant neoplasm of prostate (principal); Z13.6 Encounter for screening for cardiovascular disorders | CPT/HCPCS: 80061; G0103 ==

== ENCOUNTER 2025-07-13 11:03 | Outpatient (CLI) | payer MEDICARE, BC, SELFPAY | END 2025-07-13 11:04 | disposition home or self-care (01) | LOC: FBOREF 11:03 | PROVIDERS: PCP Family Medicine; Visit Provider Family Medicine | DX: E11.9 Type 2 diabetes mellitus without complications (principal); I10 Essential (primary) hypertension; Z79.4 Long term (current) use of insulin | CPT/HCPCS: 80048 ==

== ENCOUNTER 2025-10-12 11:23 | Outpatient (CLI) | payer MEDICARE, BC, SELFPAY | END 2025-10-12 11:24 | disposition home or self-care (01) | LOC: FBOREF 11:23 | PROVIDERS: PCP Family Medicine; Visit Provider Family Medicine | DX: I10 Essential (primary) hypertension (principal); N40.0 Benign prostatic hyperplasia without lower urinary tract symptoms; E11.9 Type 2 diabetes mellitus without complications; Z79.4 Long term (current) use of insulin | CPT/HCPCS: 80048; 82043; 82570; G0103 ==